=== PATIENT | female | born 1955 | race Caucasian/White ===

== ENCOUNTER 2019-03-22 08:49 | Outpatient (CLI) | payer MEDICARE, OTHER, SELFPAY ==
--- NOTE | 2019-03-22 09:14 | MR_ITS ---
WS: [id number] MRI RIGHT SHOULDER NONCONTRAST TECHNIQUE: Sagittal T2, coronal T1, T2 and proton density imaging. Axial gradient PDE imaging. CLINICAL INFORMATION: CHRONIC RT SHOULDER PAIN COMPARISON: None. 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 Moderate downsloping of the acromion. Aashish rowing of the subacromial space. Tendinopathy in the distal supraspinatus. Small undersurface tear at the distal insertion. No full-thickness tears. Infraspinatus is intact. Normal teres minor. Normal s ubscapularis. Biceps tendon in the bicipital groove which is atrophic. Normal visualized biceps labral anchor. [employer] Grower bob thinning of the intra-articular portion of the biceps tendon. Degenerative fraying of the glenoid labrum which appears grossly intact. Normal bone marrow signal. MR/MR shoulder RT wo con* [id number] IMPRESSION: 1. Moderate degenerative arthritis at the AC joint with associated edema consi stent with degenerative change/synovitis. Narrowing of the subacromial space. 2. Tendinopathy in the distal supraspinatus with small undersurface insertion al tear. 3. Rotator cuff is otherwise intact. 4. Biceps tendon appears intact in the bicipital groove with mild chronic atro phy. 5. Glenoid labrum appears grossly intact.
== END 2019-03-22 08:50 | disposition home or self-care (01) ==
LOC: RADSHAW 08:57
PROVIDERS: Visit Provider Nurse Practitioner Family
DX: M19.011 Primary osteoarthritis, right shoulder (principal); M25.511 Pain in right shoulder; G89.29 Other chronic pain
CPT/HCPCS: 73221

== ENCOUNTER 2021-07-23 10:03 | Outpatient (CLI) | payer MEDICARE, SELFPAY ==
--- NOTE | 2021-07-23 10:36 | MM_ITS ---
WS: [id number] BILATERAL SCREENING DIGITAL BREAST TOMOSYNTHESIS MAMMOGRAM WITH CAD HISTORY: SCREENING COMPARISON: 05/26/2016 Bilateral CC and MLO views with tomosynthesis and synthetic mammography submitted. Computer aided det ection analyzed. Breast composition: There are scattered areas of fibroglandular density. No suspicious masses, microc alcifications or architectural distortion. Benign calcifications in each breast. MM/[place] [id number] IMPRESSION: BI-RADS: 2-Benign FOLLOW UP: 1 Year Follow-up
== END 2021-07-23 10:04 | disposition home or self-care (01) ==
LOC: RAD 10:07
PROVIDERS: PCP Nurse Practitioner Family; Visit Provider Nurse Practitioner Family
DX: Z12.31 Encounter for screening mammogram for malignant neoplasm of breast (principal)
CPT/HCPCS: 77063; 77067

== ENCOUNTER → 2021-11-10 09:40 | Outpatient (BNVA) | payer MEDICARE, SELFPAY | PROVIDERS: PCP Nurse Practitioner Family; Visit Provider Podiatrist Foot & Ankle Surgery | DX: E11.8 Type 2 diabetes mellitus with unspecified complications (principal); M92.61 Juvenile osteochondrosis of tarsus, right ankle; M92.62 Juvenile osteochondrosis of tarsus, left ankle; L60.8 Other nail disorders; M20.21 Hallux rigidus, right foot; Z79.84 Long term (current) use of oral hypoglycemic drugs | CPT/HCPCS: 99204 ==

== ENCOUNTER → 2022-01-05 10:29 | Outpatient (BNVA) | payer MEDICARE, SELFPAY | PROVIDERS: PCP Nurse Practitioner Family; Visit Provider Podiatrist Foot & Ankle Surgery | DX: E11.8 Type 2 diabetes mellitus with unspecified complications (principal); M92.61 Juvenile osteochondrosis of tarsus, right ankle; M92.62 Juvenile osteochondrosis of tarsus, left ankle; L60.8 Other nail disorders; M20.21 Hallux rigidus, right foot; M20.22 Hallux rigidus, left foot; L60.3 Nail dystrophy | CPT/HCPCS: 99214 ==

== ENCOUNTER 2022-03-23 11:15 | Emergency (ER) | payer MEDICARE, SELFPAY ==
[2022-03-23 11:47] VITALS: BP 132/72; PULSE 111; RESP 15; TEMP 37.1; O2SAT 98
--- NOTE | 2022-03-23 11:54 | XRR_ITS ---
PROCEDURE INFORMATION: Exam: XR Chest Exam date and time: 03/23/2022 12:06 PM Age: 66 years old Clinical indication: Cough and fever; Additional info: Cough, fevers TECHNIQUE: Imaging protocol: Radiologic exam of the chest. Views: 1 view. COMPARISON: MR shoulder RT wo con* [id number] 03/22/2019 10:17 AM FINDINGS: Lungs: Unremarkable. No consolidation. Pleural spaces: Unremarkable. No pleural effusion. No pneumothorax. Heart/Mediastinum: Cardiac silhouette appears mildly enlarged on this portable chest. Bones/joints: Unremarkable. XR/XR chest 1V portable [id number] IMPRESSION: Mild cardiomegaly otherwise negative chest.
--- NOTE | 2022-03-23 11:55 | ED_ITS ---
HPI - Nausea/Vomiting/Diarrhea General: Chief complaint: Nausea/Vomiting/Diarrhea Stated complaint: n/v Time Seen by Provider: 03/23/22 11:53 Source: patient Mode of arrival: ambulatory Limitations: no limitations History of Present Illness: Patient is a 66-year-old female presents to ED today with a main complaint of nausea and vomiting beginning yesterday evening. She states she has vomited approximately 10-12 episodes of nonbloody and nonbilious emesis. She is reporting normal bowel movements and passing flatulence. She does not report abdominal pain. Patient states she is a diabetic but does not routinely check her blood sugars. She states she has had a cough recently although states she chronically has a cough secondary to asthma and smoking and cannot tell me if she feels like this is any worse than her baseline. She does state yesterday she checked her temperature and it was 101 but states shortly after she rechecked and it was 99.0. MD elicited complaint: nausea and vomiting Onset (ago): hour(s) Associated nausea: Yes Associated abdominal pain: No Location of pain: None Exacerbating factors: eating Relieving factors: none Associated symtoms: Reports nausea; Denies chest pain, dysuria, fatigue, headache(s), malaise, palpitations or syncope Review of Systems Const: Reports: fever(s) and other (reporting increased thrist); Denies: chills, body aches, fatigue or malaise ENMT: Denies: throat pain, odynophagia, ear or mastoid pain, nasal discharge or nasal congestion Card: Denies: chest pain, palpitations, irregular heart rhythm, edema, swelling of feet/ankles, lightheadedness, syncope, pre-syncope, dyspnea on exertion or orthopnea Resp: Reports: non-productive cough; Denies: dyspnea, productive cough, wheezing, pain on inspiration, change in phlegm color, hemoptysis or chest congestion GI: Reports: nausea and vomiting; Denies: abdominal pain, hematemesis, diarrhea, constipation, GI cramping, change in bowel habits, hematochezia or melena : Denies: flank pain, dysuria or hematuria Musc: Denies: neck pain, back pain, extremity pain or joint pain Skin/Breast: Denies: rash Neuro: Denies: headache(s), numbness in extremities, weakness in extremities or sensory changes PFS ED PFSH: Social History Smoking and tobacco status: never smoked Physical Exam Const: COMMON NORMALS: no acute distress, patient oriented x3, no limitations and alert GENERAL APPEARANCE: cooperative NUTRITIONAL APPEARANCE: obese ORIENTATION/CONSCIOUSNESS: Yes awake, Yes oriented to person, Yes oriented to place and Yes oriented to time HENMT: COMMON NORMALS: normocephalic and atraumatic HEAD & SCALP: normal to inspection, normocephalic and atraumatic Neck/C-Spine: COMMON NORMALS: full ROM and no lymphadenopathy GENERAL: Yes normal visual inspection Chest: COMMONS NORMALS: normal inspection of the chest and normal palpation of entire chest wall Resp: COMMON NORMALS: normal respiratory effort and clear to auscultation bilaterally AUSCULTATION: clear to auscultation bilaterally Cardio: COMMON NORMALS: regular rate and regular rhythm RATE: regular rate RHYTHM: regular rhythm GI: COMMON NORMALS: Normal to inspection, nondistended, normoactive bowel sounds present, Soft to palpation, No hepatosplenomegaly present and no masses INSPECTION: Yes normal to inspection AUSCULTATION: Yes normoactive bowel sounds PALPATION: Yes Soft to palpation, Yes Tenderness to palpation present (GI) (reporting diffuse mild tenderness w/ palpation; non-surgical), No Guarding due to palpation present (GI), No Rigid due to palpation and Yes No hepatosplenomegaly present : COMMON NORMALS: Yes no CVA tenderness BLADDER/KIDNEY EXAM: Yes no CVA tenderness Back/Pelvis: COMMON NORMALS: no CVA tenderness Extremity: COMMON NORMALS: normal to inspection GENERAL: Yes normal exam except as noted Neuro: AJ COMA SCALE: document GCS findings Aj coma scale eye open ing: Spontaneous Aj coma scale verbal response: Orientated [place] coma scale motor response: Obey commands Aj coma scale total score: 15 COMMON NORMALS: patient oriented x3, CN's II-XII intact bilaterally, moves all extremities, no focal motor deficits and no sensory deficits noted SENSORIUM/ORIENTATION: Yes alert, Yes oriented to person, Yes oriented to place and Yes oriented to time Skin: COMMON NORMALS: no rashes or lesions noted GENERAL SKIN EXAM: no rashes or lesions noted Course Vital Signs: Vital signs: Vital Signs Temperature 98.7 F 03/23/22 11:47 Pulse Rate 115 H 03/23/22 15:24 Respiratory Rate 16 03/23/22 15:24 Blood Pressure 140/84 03/23/22 15:24 Pulse Oximetry 93 03/23/22 15:24 Oxygen Delivery Me thod 03/23/22 11:47 MDM - Nausea/Vomiting/Diarrhea Medical Decision Making Patient presented to the ED today with a complaint of nausea and vomiting. Patient seems to think that symptoms began after eating leftover Syrian food. During re-examination she did mention how she has been out of her Ozempic for several months and just received this medication yesterday. This medication can have a side effect of nausea and vomiting. Patient is a known diabetic and reportedly does not check her blood sugars at home. Blood sugars upon arrival were in the 400s-again unknown baseline. She has no evidence of DKA. Ketones are negative. She has a normal pH on her ABG. Patient was given a liter of fluids and antiemetics. She states she feels vastly improved-sugars down in the 300s. She was able to eat and drink here without vomiting. I had ordered jeana ent some insulin but she declines and wants to go home. I think this is reasonable. Recommend she follow-up with primary care this week for re- evaluation. Discussed diabetic diet. Strict return to ED precautions given. Lab Data 03/23/22 12:18 03/23/22 12:18 Radiology Impressions Chest X-Ray 03/23/22 11:54 IMPRESSION: Mild cardiomegaly otherwise negative chest. Laboratory Results WBC 11.1 10^3/uL (4.0-10.0) H 03/23/22 12:18 RBC 5.07 10^6/uL (4.1-5.3) 03/23/22 12:18 Hgb 12.9 g/dL (11.5-15.3) 03/23/22 12:18 Hct 40.0 % (37.0-47.0) 03/23/22 12:18 MCV 78.9 fl (81-99) L 03/23/22 12:18 MCH 25.4 pg (28.0-34.0) L 03/23/22 12:18 MCHC 32.3 g/dL (30.0-36.0) 03/23/22 12:18 RDW 14.0 % (12.1-15.1) 03/23/22 12:18 Plt Count 318 10^3/cmm (130-400) 03/23/22 12:18 MPV 11.3 fL (7.4-10.4) H 03/23/22 12:18 Neut % (Auto) 77.6 % 03/23/22 12:18 Lymph % (Auto) 15.7 % 03/23/22 12:18 [place] % (Auto) 4.3 % 03/23/22 12:18 Eos % (Auto) 0.1 % 03/23/22 12:18 Baso % (Auto) 0.5 % 03/23/22 12:18 Neut # (Auto) 8.58 10^3/uL (1.8-7.7) H 03/23/22 12:18 Lymph # (Auto) 1.7 10^3/uL (0.8-4.8) 03/23/22 12:18 [place] # (Auto) 0.5 10^3/uL (0.2-0.9) 03/23/22 12:18 Eos # (Auto) 0.0 10^3/uL (0.0-0.8) 03/23/22 12:18 Baso # (Auto) 0.1 10^3/uL (0.0-0.1) 03/23/22 12:18 Nucleated RBC % (auto) 0 % 03/23/22 12:18 Nucleated RBCs # 0.0 /100WBC 03/23/22 12:18 Specimen Type Arterial 03/23/22 13:28 Sample Site Radial, left 03/23/22 13:28 ABG pH 7.44 (7.35-7.45) 03/23/22 13:28 ABG pCO2 40.3 mmHg (35-45) 03/23/22 13:28 ABG pO2 66.6 mmHg (80.0-100.0) L 03/23/22 13:28 ABG HCO3 27.2 mmol/L (22-26) H 03/23/22 13:28 ABG O2 Saturation 94.7 03/23/22 13:28 ABG Base Excess 2.8 mmol/L (-2.0-2.0) H 03/23/22 13:28 Jude Test Pos 03/23/22 13:28 A-a O2 Gradient 4.4 mmHg (5-10) L 03/23/22 13:28 Hematocrit 36.1 % (37-47) L 03/23/22 13:28 Hgb O2 Saturation 92.2 % (95-100) L 03/23/22 13:28 Carboxyhemoglobin 1.6 %THgb (0.4-20.1) 03/23/22 13:28 Methemoglobin 1.0 % (0.4-1.5) 03/23/22 13:28 Total Hemoglobin 11.8 g/dL (12-16) L 03/23/22 13:28 Sodium 143.0 mmol/L (131-143) 03/23/22 13:28 Potassium 4.0 mmol/L (3.5-5.0) 03/23/22 13:28 Glucose 383.0 mg/dL (70-115) H 03/23/22 13:28 Ionized Calcium 1.2 mmol/L (1.1-1.4) 03/23/22 13:28 O2 Delivery Device Nc 03/23/22 13:28 O2 Liters/Min 2.0 % 03/23/22 13:28 Motion Designer ID [place] 03/23/22 13:28 Sodium 139 mmol/L (136-145) 03/23/22 12:18 Potassium 4.8 mmol/L (3.5-5.1) 03/23/22 12:18 Chloride 97 mmol/L (98-107) L 03/23/22 12:18 Carbon Dioxide 24 mmol/L (22-29) 03/23/22 12:18 Anion Gap 22.8 (5-19) H 03/23/22 12:18 BUN 24 mg/dL (8-23) H 03/23/22 12:18 Creatinine 1.0 mg/dL (0.5-0.9) H 03/23/22 12:18 GFR Calculation 55.1 mL/min (90-130) L 03/23/22 12:18 Glucose 459 mg/dL (65-115) H 03/23/22 12:18 POC Glucose 369 mg/dL (70-110) H 03/23/22 13:56 Calculated Osmolality 312 mOsm/kg (285-295) H 03/23/22 12:18 Calcium 9.4 mg/dL (8.5-10.5) 03/23/22 12:18 Total Bilirubin 0.3 mg/dL (0.15-1.2) 03/23/22 12:18 AST 21 U/L (0-32) 03/23/22 12:18 ALT 21 U/L (0-33) 03/23/22 12:18 Alkaline Phosphatase 108 U/L (35-105) H 03/23/22 12:18 Total Protein 7.2 g/dL (6.6-8.7) 03/23/22 12:18 Albumin 4.4 g/dL (3.5-5.2) 03/23/22 12:18 Globulin 2.8 g/dL (1.3-4.6) 03/23/22 12:18 Lipase 27 U/L (13-60) 03/23/22 12:18 Urine Color Yellow (Yellow) 03/23/22 13:05 Urine Appearance Clear (CLEAR) 03/23/22 13:05 Urine pH 8 (5-7) H 03/23/22 13:05 Ur Specific [place] 1.025 (1.005-1.030) 03/23/22 13:05 Urine Protein 2+ (Negative) H 03/23/22 13:05 Urine Glucose (UA) 4+ (Normal) H 03/23/22 13:05 Urine Ketones 1+ (Negative) H 03/23/22 13:05 Urine Blood Neg (Negative) 03/23/22 13:05 Urine Nitrate Negative (Negative) 03/23/22 13:05 Urine Bilirubin Neg (Negative) 03/23/22 13:05 Prot Sulfosalicylic Acd Positive (Negative) 03/23/22 13:05 Urine Urobilinogen Norm mg/dL (Negative) 03/23/22 13:05 Ur Leukocyte Esterase Negative (Negative) 03/23/22 13:05 Urine RBC 0-4 /hpf (0-2) H 03/23/22 13:05 Urine WBC 0-4 /hpf (0-5) H 03/23/22 13:05 Ur Squamous Epith Cells 0-4 /hpf (0-5) H 03/23/22 13:05 Amorphous Sediment Not Reportable 03/23/22 13:05 Urine Bacteria Trace /hpf (NONE) 03/23/22 13:05 Serum Ketones Negative (Negative) 03/23/22 12:18 Influenza Type A Ag negative (Negative) 03/23/22 12:18 Influenza Type B Ag negative (Negative) 03/23/22 12:18 SARS-CoV-2 Ag (Rapid) negative (Negative) 03/23/22 12:18 Discharge Plan Discharge Patient Disposition: Home Clinical Impression: Hyperglycemia, Gastroenteritis Nausea and vomiting Qualifiers: Vomiting type: unspecified Qualified Code(s): R11.2 - Nausea with vomiting, unspecified Condition: Stable Prescriptions: New Reglan 10 mg tablet 10 mg PO Q6H 7 Days Qty: 15 0RF No Action (DME) Diabetic Shoes with 3 Pairs of Inserts See Rx Instructions .Route .MEDSUPPLY Qty: 1 0RF Rx Instructions: As directed by HOME cyclobenzaprine 10 mg tablet PO sertraline 100 mg tablet PO hydroxyzine HCl 25 mg tablet PO hydrochlorothiazide 12.5 mg capsule PO ibuprofen [IBU] 800 mg tablet PO rosuvastatin 20 mg tablet PO Ozempic 1 mg/dose (4 mg/3 mL) pen injector SUBCUT fluticasone propionate 50 mcg/actuation spray,suspension intranasal losartan 25 mg tablet PO levothyroxine 25 mcg tablet PO glimepiride 1 mg tablet PO metformin 500 mg tablet PO montelukast 10 mg tablet PO alcohol swabs [DropSafe Alcohol Prep Pads] Pads, Medicated topical (DME) blood-glucose meter [True Metrix Glucose Meter] Kit See Rx Instructions .ROUTE .MEDSUPPLY Qty: 1 Rx Instructions: As directed (DME) True Metrix Glucose Test Strip Strip See Rx Instructions .ROUTE .MEDSUPPLY Qty: 10 Rx Instructions: As directed (DME) lancets [TRUEplus Lancets] 33 gauge misc See Rx Instructions .ROUTE .MEDSUPPLY Qty: 100 Rx Instructions: As directed Discharge Orders: Discharge ED (Routine); Ordered 03/23/22 Ordered By: Sumi Crabtree Referrals: Carrol Flaherty FNP [Primary Care Provider] - Coding Level of Care Code ED Managing Partner [employer] for Chg Fwd Exam Comprehensive
[2022-03-23] MEDS: sodium chloride 0.9% 1,000 ML 999 ML IV (12:07)
[2022-03-23] MEDS: ondansetron 2 mg/ML SDV 2 mL 4 MG IVP (12:14)
[2022-03-23 12:25] LABS: Basophils # 0.1 10^3/uL (0.0-0.1); Basophils % 0.5 %; Eosinophils % 0.1 %; Hemoglobin 12.9 g/dL (11.5-15.3); Lymphocytes # 1.7 10^3/uL (0.8-4.8); Lymphocytes % 15.7 %; Mean Corpuscular HGB Conc 32.3 g/dL (30.0-36.0); Mean Corpuscular Hemoglobin 25.4 pg (28.0-34.0); Mean Corpuscular Volume 78.9 fl (81-99); Mean Platelet Volume 11.3 fL (7.4-10.4); Monocytes # 0.5 10^3/uL (0.2-0.9); Monocytes % 4.3 %; Neutrophils # 8.58 10^3/uL (1.8-7.7); Neutrophils % 77.6 %; Nucleated Red Blood Cells % 0 %; Platelet Count 318 10^3/cmm (130-400); Red Blood Count 5.07 10^6/uL (4.1-5.3); White Blood Count 11.1 10^3/uL (4.0-10.0)
[2022-03-23 12:43] LABS: Alanine Aminotransferase 21 U/L (0-33); Albumin Level 4.4 g/dL (3.5-5.2); Alkaline Phosphatase 108 U/L (35-105); Blood Urea Nitrogen 24 mg/dL (8-23); Calcium 9.4 mg/dL (8.5-10.5); Carbon Dioxide 24 mmol/L (22-29); Chloride 97 mmol/L (98-107); Globulin 2.8 g/dL (1.3-4.6); Glomerular Filtration Rate 55.1 mL/min (90-130); Glucose 459 mg/dL (65-115); Lipase 27 U/L (13-60); Osmolality Calculated 312 mOsm/kg (285-295); Sodium 139 mmol/L (136-145); Total Bilirubin 0.3 mg/dL (0.15-1.2); Total Protein 7.2 g/dL (6.6-8.7)
[2022-03-23 12:45] LABS: Anion Gap 22.8 (5-19); Potassium 4.8 mmol/L (3.5-5.1)
[2022-03-23 12:57] LABS: Ketone (Acetest) Serum Negative (Negative)
[2022-03-23 13:39] LABS: ABG PCO2 40.3 mmHg (35-45); ABG PH Result 7.44 (7.35-7.45); Alveolar-Arterial Oxygen Gradi 4.4 mmHg (5-10); Arterial Blood Gas Hematocrit 36.1 % (37-47); Base Excess ABG 2.8 mmol/L (-2.0-2.0); Blood Gas Allen Test Pos; Blood Gas Operator Identificat WALCI; Blood Gas Sample Site Radial, left; Blood Gas Sample Type Arterial; Carboxyhemoglobin 1.6 %THgb (0.4-20.1); HCO3 ABG 27.2 mmol/L (22-26); HGB O2 Sat 92.2 % (95-100); Ionized Calcium Level - ABG 1.2 mmol/L (1.1-1.4); Oxygen Device NC; Oxygen Saturation ABG 94.7; PO2 ABG 66.6 mmHg (80.0-100.0); Total Hemoglobin 11.8 g/dL (12-16)
[2022-03-23 13:40] LABS: Add Urine Microscopic? YES; Bilirubin Urine Neg (Negative); Blood Urine Neg (Negative); Glucose Urine UA 4+ (Normal); Ketones Urine 1+ (Negative); Leukocyte Esterase Urine Negative (Negative); Nitrate Urine Negative (Negative); Protein Urine 2+ (Negative); Specific Gravity, Urine 1.025 (1.005-1.030); Sulfosalicylic Acid Urine Positive (Negative); Urine Appearance Clear (CLEAR); Urine Color Yellow (Yellow); Urobilinogen Urine Norm (Negative); pH Urine 8 (5-7)
[2022-03-23 13:41] LABS: Add Urine Culture? No; Bacteria Urine TRACE /hpf; RBC Urine 0-4 /hpf (0-2); Squamous Epithelial Cell Urine 0-4 /hpf (0-5); WBC Urine 0-4 /hpf (0-5)
[2022-03-23 13:44] LABS: Aspartate Amino Transferase 21 U/L (0-32)
[2022-03-23 13:52] LABS: SARS Covid-2 Antigen negative (Negative)
[2022-03-23 13:54] LABS: Influenza A by IFA negative (Negative); Influenza B by IFA negative (Negative)
[2022-03-23 13:59] LABS: Glucose Point of Care 369 mg/dL (70-110)
[2022-03-23 14:10] VITALS: BP 166/90; PULSE 103; RESP 16; O2SAT 96
[2022-03-23] MEDS: metoclopramide 5 mg/mL SDV 2 mL 10 MG IVP (14:39)
[2022-03-23 15:24] VITALS: BP 140/84; PULSE 115; RESP 16; O2SAT 93
== END 2022-03-23 15:28 | disposition home or self-care (01) ==
PROVIDERS: Emergency Provider Physician Assistant; PCP Nurse Practitioner Family
DX: K52.9 Noninfective gastroenteritis and colitis, unspecified (principal); E11.65 Type 2 diabetes mellitus with hyperglycemia; Z20.822 Contact with and (suspected) exposure to COVID-19; Z79.84 Long term (current) use of oral hypoglycemic drugs
CPT/HCPCS: 36416; 36600; 71045; 80051; 80053; 81001; 82009; 82330; 82805; 82962; 83690; 85025; 87426; 87804; 96361; 96374; 96375; 99285; J2405; J2765; J7030

== ENCOUNTER → 2022-06-01 11:26 | Outpatient (BNVA) | payer MEDICARE, SELFPAY | PROVIDERS: PCP Nurse Practitioner Family; Visit Provider Podiatrist Foot & Ankle Surgery | DX: E11.8 Type 2 diabetes mellitus with unspecified complications (principal); M92.61 Juvenile osteochondrosis of tarsus, right ankle; M92.62 Juvenile osteochondrosis of tarsus, left ankle; M20.21 Hallux rigidus, right foot; M20.22 Hallux rigidus, left foot; L60.3 Nail dystrophy; M21.41 Flat foot [pes planus] (acquired), right foot; M21.42 Flat foot [pes planus] (acquired), left foot; M72.2 Plantar fascial fibromatosis; Z79.84 Long term (current) use of oral hypoglycemic drugs | CPT/HCPCS: 99214 ==

== ENCOUNTER 2022-08-14 10:00 | Outpatient (CLI) | payer MEDICARE, SELFPAY ==
--- NOTE | 2022-08-14 10:04 | MM_ITS ---
WS: [id number] BILATERAL 3D TOMOSYNTHESIS DIGITAL SCREENING MAMMOGRAPHY WITH CAD CLINICAL INFORMATION: SCREENING HISTORY: Screening mammogram. No current complaints. COMPARISON: 2021 TECHNIQUE: Bilateral CC and MLO views. FINDINGS: Scattered fibroglandular densities bilaterally. No suspicious focal mass, asymmetry, calcifications, or architectural distortion. No evidence of malignancy. Punctate and lucent centered calcifications. MM/[place] [id number] IMPRESSION: BI-RADS: 2-Benign FOLLOW UP: 1 Year Follow-up Recommend return to annual screening mammography.
== END 2022-08-14 10:01 | disposition home or self-care (01) ==
PROVIDERS: PCP Nurse Practitioner Family; Visit Provider Registered Nurse
DX: Z12.31 Encounter for screening mammogram for malignant neoplasm of breast (principal)
CPT/HCPCS: 77063; 77067

== ENCOUNTER 2023-09-02 10:30 | Outpatient (CLI) | payer MEDICARE, SELFPAY ==
--- NOTE | 2023-09-02 10:12 | MM_ITS ---
WS: [id number] VIEWS: MLO and CC views both breasts. 3D digital tomosynthesis is also included in this exam. Comparison made with prior exam of 01/12/2012, 04/26/2012, 06/20/2013, 09/20/2014, 05/26/2016, 07/23/2021, .. Findings: There was no sign of mass, architectural distortion or suspicious calcification in either breast. The re are scattered areas of fibroglandular density MM/[place] [id number] Impression: BI-RADS: 2-Benign finding. FOLLOW-UP: 1 Year Follow-up This mammogram was also analyzed by the Computer Aided Detection System R2 Imag e Director Business.
== END 2023-09-02 10:31 | disposition home or self-care (01) ==
PROVIDERS: PCP Nurse Practitioner Family; Visit Provider Registered Nurse
DX: Z12.31 Encounter for screening mammogram for malignant neoplasm of breast (principal)
CPT/HCPCS: 77063; 77067

== ENCOUNTER 2024-12-12 07:26 | Outpatient (CLI) | payer MEDICARE, SELFPAY ==
--- NOTE | 2024-12-12 08:11 | CT_ITS ---
WS: [id number] LDCT LUNG CANCER SCREENING HISTORY: HISTORY OF TOBACCO USE TECHNIQUE: Axial imaging performed from the apices to 1 cm below the costophrenic angles. Coronal and sagittal reformats are submitted with axial MIP series. All CT scans at [facility] use at least one of these dose optimization techniques: automated exposure control; mA and/or kV adjustment per patient size (includes targeted exams where dose is matched to clinical indication); or iterative reconstruction. DLP: 73.61 mGy.cm DIvol: Mean CTDIvol: 1.90 (mGy) COMPARISON: None available. Diagnostic quality: Satisfactory Lungs: Cluster of micronodules in the periphery RIGHT lower lobe. These nodules are less than 3 mm. No additional nodule or mass. No pneumonia. No endobronchial lesions. Heart: Normal size heart with no pericardial effusion.. Moderate coronary artery calcification. Other findings: Very slightly prominent pulmonary artery. Mild atherosclerosis aorta. No pathologically enlarged lymph nodes. No pericardial or pleural effusion. Small hiatal hernia. No adrenal mass. CT/CT lung screening [id number] IMPRESSION: LUNG-RADS: 2-Benign Appearance or Behavior FOLLOW UP: 12 Month: Continue annual screening with LDCT OTHER FINDINGS (S MODIFIER): None.
--- NOTE | 2024-12-12 08:17 | MM_ITS ---
WS: [id number] BILATERAL 3D TOMOSYNTHESIS DIGITAL SCREENING MAMMOGRAPHY WITH CAD CLINICAL INFORMATION: SCREENING HISTORY: Screening mammogram. No current complaints. COMPARISON: 2023 TECHNIQUE: Bilateral CC and MLO views. FINDINGS: Scattered fibroglandular densities bilaterally. No suspicious focal mass, asymmetry, calcifications, or architectural distortion. No evidence of malignancy. Lucent centered calcifications. MM/MM scr tomosynthesis [id number] IMPRESSION: DENSITY: There are scattered areas of fibroglandular density. BI-RADS: 2 - Benign. FOLLOW UP: 1 Year Follow-up Recommend return to annual screening mammography.
== END 2024-12-12 07:27 | disposition home or self-care (01) ==
LOC: RAD 07:28
PROVIDERS: PCP Nurse Practitioner Family; Visit Provider Nurse Practitioner Family
DX: Z12.31 Encounter for screening mammogram for malignant neoplasm of breast (principal); Z12.2 Encounter for screening for malignant neoplasm of respiratory organs; Z87.891 Personal history of nicotine dependence; R92.323 Mammographic fibroglandular density, bilateral breasts; R92.1 Mammographic calcification found on diagnostic imaging of breast; R91.1 Solitary pulmonary nodule; I25.84 Coronary atherosclerosis due to calcified coronary lesion; I70.0 Atherosclerosis of aorta
CPT/HCPCS: 71271; 77063; 77067

== ENCOUNTER → 2025-01-15 09:04 | Outpatient (BNVA) | payer MEDICARE, SELFPAY | PROVIDERS: PCP Nurse Practitioner Family; Visit Provider Dermatology | DX: L30.4 Erythema intertrigo (principal); R22.0 Localized swelling, mass and lump, head; L82.0 Inflamed seborrheic keratosis; L29.89 Other pruritus; L57.0 Actinic keratosis | CPT/HCPCS: 17000; 17110; 99203 ==

== ENCOUNTER 2025-01-26 11:35 | Outpatient (CLI) | payer MEDICARE, SELFPAY ==
--- NOTE | 2025-01-26 11:46 | US_ITS ---
WS: [id number] ULTRASOUND SOFT TISSUES LEFT forehead HISTORY: SUBCUTANEOUS MASS COMPARISON: None available. TECHNIQUE: 2-D and color Doppler imaging is submitted. Ultrasound is directed to the palpable areas by the patient. There is some very minimal skin thickening over the forehead but there is no discrete mass. No identifiable measurable collection. There is mild prominent curvature of the forehead which may be responsible for the palpable abnormalities. US/US soft tissue head neck [id number] IMPRESSION: 1. No palpable scalp mass. 2. Prominent curvature of the frontal bone may be responsible for the palpable abnormalities.
== END 2025-01-26 11:36 | disposition home or self-care (01) ==
PROVIDERS: PCP Nurse Practitioner Family; Visit Provider Dermatology
DX: R22.0 Localized swelling, mass and lump, head (principal)
CPT/HCPCS: 76536

== ENCOUNTER 2025-02-19 10:44 | Oncology outpatient (recurring) (ONCR) | payer MEDICARE, SELFPAY | END 2025-03-14 23:59 | disposition home or self-care (01) | PROVIDERS: PCP Nurse Practitioner Family; Visit Provider Internal Medicine Medical Oncology | DX: R22.0 Localized swelling, mass and lump, head (principal); L30.4 Erythema intertrigo; L82.1 Other seborrheic keratosis; L85.3 Xerosis cutis; L57.0 Actinic keratosis; R79.89 Other specified abnormal findings of blood chemistry | CPT/HCPCS: 17000; 99204; 99213 ==